=== PATIENT | female | born 2000 | race American Indian/Alaskan Native ===

== ENCOUNTER 2019-10-28 16:07 | Emergency (ER) | payer SELFPAY ==
[2019-10-28 16:36] VITALS: BP 132/78
[2019-10-28] MEDS ORDERED: HYDROcodone/ACETAMINOPHEN 5-325 MG TAB PO ONE (20:01)
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
--- NOTE | 2019-10-28 21:05 | XRay Report ---
LEFT FOREARM 2 VIEWS INDICATION / CLINICAL INFORMATION: MAIN. COMPARISON: None available. FINDINGS: No significant skeletal abnormality. No definite radiopaque foreign body is identified. Signer Name: Jose Antonio Ricci MD FACKitty Signed: 10/28/2019 9:01 PM Workstation Name: [id number]
[2019-10-28] MEDS ORDERED: HYDROGEN PEROXIDE 118 ML SOLUTION TP ONE (21:30)
== END 2019-10-28 22:30 | disposition home or self-care (01) ==
LOC: ED 16:07
DX: S39.012A Strain of muscle, fascia and tendon of lower back, initial encounter (principal); S41.112A Laceration without foreign body of left upper arm, initial encounter; F17.200 Nicotine dependence, unspecified, uncomplicated; Z79.899 Other long term (current) drug therapy; V49.49XA Driver injured in collision with other motor vehicles in traffic accident, initial encounter; Y93.89 Activity, other specified; Y92.488 Other paved roadways as the place of occurrence of the external cause; Y99.8 Other external cause status
CPT/HCPCS: 99283

== ENCOUNTER 2020-09-18 22:02 | Emergency (ER) | payer SELFPAY ==
[2020-09-18 23:25] VITALS: BP 122/60
--- NOTE | 2020-09-19 01:09 | Emergency Department Report ---
- General Chief complaint: Skin/Abscess/Foreign Body Stated complaint: SWOLLEN RIGHT LEG POSSIBLE BUG BITE Time Seen by Provider: 09/18/20 23:16 Source: patient Mode of arrival: Ambulatory Limitations: No Limitations - History of Present Illness Initial comments: 20-year-old woman female, department complaining of a 3 to 4-day history of gradually worsening bite pruritus and inflammation to the right posterior aspect of the upper leg reports no fever, chills, sweats. Minimal tenderness is appreciated. She does not know "what what bit her because the start of the inflammatory processes. She reports no chest pain no palpitation, no nausea, no no vomiting. Patient ports no wheezing no shortness of breath. MD complaint: insect bite/sting -: Sudden, days(s) (4) Location: RLE Severity: mild, moderate Quality: dull Consistency: constant Improves with: none Worsens with: none Associated symptoms: itching Treatments Prior to Arrival: none - Related Data Previous Rx's Medication Instructions Recorded Last Taken Type Acetaminophen/Codeine [Tylenol #3] 1 tab PO Q6H PRN #20 tab 08/07/14 Unknown Rx Ibuprofen [Motrin] 600 mg PO Q8H PRN #50 tablet 08/07/14 Unknown Rx Sulfamethoxazole/Trimethoprim 1 each PO BID #20 tablet 08/07/14 Unknown Rx [Bactrim Ds] Ibuprofen [Motrin 800 MG tab] 800 mg PO Q8HR PRN #21 tablet 10/28/19 Unknown Rx cephALEXin [Keflex] 500 mg PO Q12HR 7 Days #14 cap 10/28/19 Unknown Rx traMADoL [Ultram 50 MG tab] 50 mg PO Q6HR PRN #10 tablet 10/28/19 Unknown Rx Sulfamethoxazole/Trimethoprim 1 each PO BID #20 tablet 09/19/20 Unknown Rx [Bactrim DS TAB] cephALEXin [Keflex] 500 mg PO Q8HR #30 cap 09/19/20 Unknown Rx hydrOXYzine HCL [Atarax] 25 mg PO Q6HR PRN #20 tablet 09/19/20 Unknown Rx Allergies Allergy/AdvReac Type Severity Reaction Status Date / Time No Known Allergies Allergy Unverified 08/07/14 15:02 Abscess Boil HPI - HPI Chief Complaint: Skin/Abscess/Foreign Body Stated Complaint: SWOLLEN RIGHT LEG POSSIBLE BUG BITE Time Seen by Provider: 09/18/20 23:16 Home Medications: Previous Rx's Medication Instructions Recorded Last Taken Type Acetaminophen/Codeine [Tylenol #3] 1 tab PO Q6H PRN #20 tab 08/07/14 Unknown Rx Ibuprofen [Motrin] 600 mg PO Q8H PRN #50 tablet 08/07/14 Unknown Rx Sulfamethoxazole/Trimethoprim 1 each PO BID #20 tablet 08/07/14 Unknown Rx [Bactrim Ds] Ibuprofen [Motrin 800 MG tab] 800 mg PO Q8HR PRN #21 tablet 10/28/19 Unknown Rx cephALEXin [Keflex] 500 mg PO Q12HR 7 Days #14 cap 10/28/19 Unknown Rx traMADoL [Ultram 50 MG tab] 50 mg PO Q6HR PRN #10 tablet 10/28/19 Unknown Rx Sulfamethoxazole/Trimethoprim 1 each PO BID #20 tablet 09/19/20 Unknown Rx [Bactrim DS TAB] cephALEXin [Keflex] 500 mg PO Q8HR #30 cap 09/19/20 Unknown Rx hydrOXYzine HCL [Atarax] 25 mg PO Q6HR PRN #20 tablet 09/19/20 Unknown Rx Allergies/Adverse Reactions: Allergies Allergy/AdvReac Type Severity Reaction Status Date / Time No Known Allergies Allergy Unverified 08/07/14 15:02 ED Review of Systems ROS: Stated complaint: SWOLLEN RIGHT LEG POSSIBLE BUG BITE Other details as noted in HPI Comment: All other systems reviewed and negative ED Past Medical Hx - Past Medical History Previous Medical History?: No - Surgical History Past Surgical History?: No - Social History Smoking Status: Current Every Day Smoker - Medications Home Medications: Home Medications Medication Instructions Recorded Confirmed Last Taken Type Acetaminophen/Codeine [Tylenol #3] 1 tab PO Q6H PRN #20 tab 08/07/14 Unknown Rx Ibuprofen [Motrin] 600 mg PO Q8H PRN #50 tablet 08/07/14 Unknown Rx Sulfamethoxazole/Trimethoprim 1 each PO BID #20 tablet 08/07/14 Unknown Rx [Bactrim Ds] Ibuprofen [Motrin 800 MG tab] 800 mg PO Q8HR PRN #21 tablet 10/28/19 Unknown Rx cephALEXin [Keflex] 500 mg PO Q12HR 7 Days #14 cap 10/28/19 Unknown Rx traMADoL [Ultram 50 MG tab] 50 mg PO Q6HR PRN #10 tablet 10/28/19 Unknown Rx Sulfamethoxazole/Trimethoprim 1 each PO BID #20 tablet 09/19/20 Unknown Rx [Bactrim DS TAB] cephALEXin [Keflex] 500 mg PO Q8HR #30 cap 09/19/20 Unknown Rx hydrOXYzine HCL [Atarax] 25 mg PO Q6HR PRN #20 tablet 09/19/20 Unknown Rx ED Physical Exam - General Limitations: No Limitations General appearance: alert, in no apparent distress - Head Head exam: Present: atraumatic, normocephalic - Eye Eye exam: Present: normal appearance, PERRL - ENT ENT exam: Present: normal exam, mucous membranes moist - Neck Neck exam: Present: normal inspection - Respiratory Respiratory exam: Present: normal lung sounds bilaterally. Absent: respiratory distress - Cardiovascular Cardiovascular Exam: Present: regular rate, normal rhythm. Absent: systolic mu rmur, diastolic murmur, rubs, gallop - GI/Abdominal GI/Abdominal exam: Present: soft, normal bowel sounds - Extremities Exam Extremities exam: Present: tenderness, normal capillary refill, other (Swelling to the right leg hamstring area with some having cellulitis noted) - Back Exam Back exam: Present: normal inspection. Absent: CVA tenderness (R), CVA tenderness (L) - Neurological Exam Neurological exam: Present: alert, oriented X3, CN II-XII intact, normal gait - Psychiatric Psychiatric exam: Present: normal affect, normal mood - Skin Skin exam: Present: warm, erythema (Swelling to the posterior right hamstring region with warmth noted. Small swelling hives noted with about 5-6 inflammatory red bite sites with local cellulitis. No lymphangitis is noted. No lymphadenopathy no pitting edema). Absent: rash ED Course Vital Signs 09/18/20 09/18/20 23:01 23:24 Temperature 99 F Pulse Rate 54 L 69 Respiratory 18 Rate Blood Pressure 122/60 [Left] O2 Sat by Pulse 100 99 Oximetry Critical care attestation.: If time is entered above; I have spent that time in minutes in the direct care of this critically ill patient, excluding procedure time. ED Disposition Clinical Impression: Cellulitis, leg, Hive Disposition: TO HOME OR SELFCARE Is pt being admited?: No Does the pt Need Aspirin: No Condition: Stable Instructions: Cellulitis, Adult Prescriptions: hydrOXYzine HCL [Atarax] 25 mg PO Q6HR PRN #20 tablet PRN Reason: Itching Sulfamethoxazole/Trimethoprim [Bactrim DS TAB] 1 each PO BID #20 tablet cephALEXin [Keflex] 500 mg PO Q8HR #30 cap Referrals: [facility] [Provider Group] - 3-5 Days
== END 2020-09-19 01:15 | disposition home or self-care (01) ==
LOC: ED 22:02
DX: L03.115 Cellulitis of right lower limb (principal)
CPT/HCPCS: 99281